=== PATIENT | male | born 1945 | race Caucasian/White ===

== ENCOUNTER 2017-10-19 07:27 | Day surgery (SDC) | payer BC, OTHER ==
[2017-10-15 13:38] VITALS: BMI 29.5
[2017-10-19] MEDS ORDERED: oxyCODONE HCL 10 MG SUSTAINED ACTING TABLET PO ONE (07:40)
--- NOTE | 2017-10-19 08:09 | HP ---
History & Physical Update - History History: No Change - Physical Physical: No Change - Assessment Assessment: No Change - Plan Plan: No Change (Full H&P from 10/15/2017 from his PMD)
[2017-10-19] MEDS ORDERED: MIDAZOLAM HCL 2 MG/2 ML SINGLE DOSE VIAL ONE ×4 (09:51→12:27)
[2017-10-19] MEDS ORDERED: ONDANSETRON 4 MG/2 ML VIAL ONE (09:51)
[2017-10-19] MEDS ORDERED: DEXAMETHASONE SOD PHOSPHATE 4 MG/1 ML VIAL ONE (09:51)
[2017-10-19] MEDS ORDERED: ceFAZolin SODIUM 1 GM VIAL ONE (09:52)
[2017-10-19] MEDS ORDERED: BUPIVACAINE HCL/PF 0.5% (5MG/ML) 10 ML VIAL ONE (09:53)
[2017-10-19] MEDS ORDERED: DEXAMETHASONE SOD PHOSPHATE/PF 10 MG/ML SDV ONE (10:22)
[2017-10-19] MEDS ORDERED: BUPIVACAINE HCL/PF (5 MG/ML) 30 ML VIAL IJ ONE (10:23)
[2017-10-19] MEDS ORDERED: THROMBIN (BOVINE) 5,000 UNIT VIAL TP ONE ×2 (11:01→12:27)
[2017-10-19] MEDS ORDERED: LIDOCAINE 1%/EPI 1:100000 (20 ML MULTI DOSE VIAL) ONE (11:02)
[2017-10-19] MEDS ORDERED: methylPREDNISolone ACET (DEPO) 40 MG/1 ML VIAL ONE (11:09)
[2017-10-19] MEDS ORDERED: LIDOCAINE 1%/EPI 1:100000 (50 ML MULTI DOSE VIAL) INF ONE (12:00)
[2017-10-19] MEDS ORDERED: GELATIN SPONGE,ABSORBABLE 1 GM PACKET TP ONE (12:27)
[2017-10-19] MEDS ORDERED: ONDANSETRON 4 MG/2 ML VIAL IVPUSH PRN (12:43)
[2017-10-19] MEDS ORDERED: oxyCODONE HCL 5 MG TABLET PO PRN (12:43)
[2017-10-19] MEDS ORDERED: LACTATED RINGERS SOLUTION 1,000 ML IV SCH (12:45)
[2017-10-19] MEDS ORDERED: methylPREDNISolone ACET (DEPO) 40 MG/1 ML VIAL IM ONE (12:51)
--- NOTE | 2017-10-19 13:30 | OP ---
Operative Note - Note: Operative Date: 10/19/17 Pre-Operative Diagnosis: lumbar stenosis, L4-L5 Operation: s/p laminectomy of L4-L5 Surgeon: Kwame Pennington Loading Machine Operator: Cheryl Rinaldi Anesthesiologist/ONLINE ADVERTISING ANALYST: Dorothy Horn Anesthesia: Spinal Estimated Blood Loss (mls): 30 Fluid Volume Replaced (mls): 1,100 Operative Report Dictated: Yes
--- NOTE | 2017-10-19 13:34 | SURG ---
Surgery Prefitter Doors Note Prefitter Doors: Cheryl Rinaldi PA-C Date of Service: 10/19/17 Diagnosis: umbar stenosis, L4-L5 Procedure: s/p laminectomy of L4-L5 I was present for the entirety of the operative procedure. For further detail, please refer to operative report. Visit type - Case Type Case Type: Scheduled Admission - Emergency Emergency Visit: No - New patient This patient is new to me today: Yes Date on this admission: 10/19/17
[2017-10-19 14:00] VITALS: TEMP 98.6
[2017-10-19 16:29] VITALS: BP 138/70; PULSE 90
--- NOTE | 2017-10-19 18:42 | OP ---
DATE OF OPERATION: 10/19/2017 PREOPERATIVE DIAGNOSIS: Spinal stenosis at L4-5. POSTOPERATIVE DIAGNOSIS: Spinal stenosis at L4-5. PROCEDURE PERFORMED: Laminectomy, L4-5. SURGEON: Kwame Pennington MD ORE BUYER: SUSAN Hernandez ESTIMATED BLOOD LOSS: 50 mL INTRAVENOUS FLUIDS: Per Anesthesia. ANESTHESIA: Spinal/TLIP. COMPLICATIONS: None. DISPOSITION: Patient brought to the PACU in stable condition. INDICATION FOR SURGERY: The patient is a 72-year-old gentleman who has been suffering from pain from his back down his legs. X-rays and MRI were completed which noted that he had spinal stenosis at L4-L5. He had gone through an exhaustive course of treatment for this, which included medications, physical therapy as well as injections. Unfortunately, his pain continued to persist despite all this. At this point, risks, benefits, and alternatives were discussed, and the patient consented to surgery. DESCRIPTION OF PROCEDURE: Patient was brought to the operating room by the anesthesia staff. After appropriate patient identification was performed, spinal anesthesia was given. A TLIP block was also given. Patient was placed prone onto the OR table with all areas of bony prominences well padded at this time. Two needles were placed into his back to lul off the L4-5 level. X-ray was taken to confirm this as correct. Harwick were removed, and 10 mL of lidocaine with epinephrine were injected in his back at this time. His back was prepped and draped in a sterile manner. At this point, a timeout was completed. An incision was made from the top of L4 down to the bottom of L5. Dissection was carried down to the fascia. Fascia was split open at this time, and appropriate retractors were then placed in. A spinal needle was placed onto the L4 lamina to lul off the L4-5 level. An x-ray was taken to confirm this as correct. The needle was removed, and the microscope was brought in. The interspinous ligament at L4-5 was removed. Portions of the L4 and L5 spinous processes were removed. A complete decompression was performed such that by the end of the procedure the L5 nerve root appeared to be well decompressed. All bleeding was well controlled at this time. Steroid was placed over the nerve root. FloSeal was placed over that. The fascia was closed with a No. 1 Vicryl suture. Subcutaneous tissues were closed with 2-0 Vicryl suture. Skin was closed with 3-0 Monocryl suture. Dermabond was applied. Steri-Strips were applied. A sterile dressing was applied. Patient was placed supine on the OR bed and brought to the PACU in stable condition. Pattie WHITE/[id number]
--- NOTE | 2017-10-23 14:59 | PATH ---
Surgical Pathology Report Patient Name: RADAMES MENDIOLA [facility]. Rec. #: [id number] /Age/Gender: 1945 (Age: 72) / M Account: [id number] Location: [facility] AM[facility]UL[facility] Taken: 10/19/2017 Received: 10/20/2017 Reported: 10/23/2017 Physicians: Kwame Pennington M.D. Specimen(s) Received L4-5 SYNOVIAL TISSUE Clinical History Spinal stenosis Final Diagnosis L4-5, SYNOVIAL TISSUE, LAMINECTOMY: BENIGN DENSE FIBROCONNECTIVE TISSUE AND SYNOVIUM. Electronically Signed Gali Rossi M.D. Gross Description Received in formalin labelled "L4-5 synovial tissue" is a 2 x 1.5 x 0.3 cm aggregate of pablo tissue fragments. Totally submitted in one cassette. [facility]/10/21/2017 [facility]/10/21/2017
== END 2017-10-19 16:15 | disposition home or self-care (01) ==
LOC: FASU 07:27
PROVIDERS: ATTEND Orthopaedic Surgery Orthopaedic Surgery of the Spine
PROC: 01NB0ZZ Release Lumbar Nerve, Open Approach (ICD-10-PCS; principal; 2017-10-19 11:34)
DX: M48.061 Spinal stenosis, lumbar region without neurogenic claudication (principal)
CPT/HCPCS: 72100-TC-FY; 82962; 94760